=== PATIENT | male | born 1955 | race Caucasian/White ===

== ENCOUNTER → 2018-04-21 | Outpatient (REF) | END | disposition home or self-care (01) | DRG 951 | LOC: PAGE 16:16 | PROVIDERS: ATTEND Nurse Practitioner Family | DX: Z02.9 Encounter for administrative examinations, unspecified (principal) ==

== ENCOUNTER 2023-01-16 15:20 | Observation (INO) | payer MEDICARE ==
[~2023-01-16] VITALS: Ht 175.3 cm; Wt 83.9 kg
[~2023-01-16 15:20] MED LIST: LISINOPRIL20 M1 PO; METFORMIN HCL1000 MG PO
[2023-01-16] MEDS ORDERED: ASPIRIN 81 MG/TAB PO PRN (15:30)
[2023-01-16] MEDS ORDERED: ASPIRIN 81 MG/TAB ONE (15:42)
[2023-01-16] MEDS ORDERED: ASPIRIN 81 MG/TAB PO ONE (15:45)
[2023-01-16 16:06] LABS: BASO% 0.4 % (0-3); EOS% 1.8 % (0-8); HEMOGLOBIN 16.2 g/dl (14.0-18.0); IMMATURE GRANULOCYTES 0.2 % (0.0-5.0); LYMPH% 4.3 % (15-41); MEAN CELL VOLUME 91.9 fL CALC (80.0-100.0); MEAN CORPUSCULAR HGB 29.8 pG CALC (26.0-32.0); MEAN CORPUSCULAR HGB CONC 32.4 g/dL CAL (32.0-36.0); MONO% 8.8 % (2-13); NEUT# 8.35 thou/uL (1.82-7.42); NEUT% 84.5 % (42-76); RED BLOOD COUNT 5.44 mill/uL (4.70-6.10); RED CELL DISTRI WIDTH 12.4 % (11.5-15.5)
[2023-01-16 16:18] LABS: ALBUMIN 4.2 g/dL (3.2-5.0); ALKALINE PHOSPHATASE 62 u/l (38-126); ANION GAP 15 (6-22 (CALC)); BILIRUBIN, TOTAL 0.4 mg/dL (0.2-1.3); BUN 13 mg/dL (8-23); BUN/CREATININE RATIO 19 (12-20 (CALC)); CARBON DIOXIDE 24 mmol/l (22-30); CHLORIDE 105 mmol/l (95-108); CREATININE 0.7 mg/dL (0.7-1.3); GFR FOR AFR.AMER. > 60 ML/MIN (>=60 (CALC)); GFR OTHER RACES > 60 ML/MIN (>=60 (CALC)); LIPASE 58 u/l (23-300); POTASSIUM 3.7 mmol/l (3.5-5.1); SODIUM 141 mmol/l (137-146); TOTAL PROTEIN 7.1 g/dL (6.3-8.2)
[2023-01-16 16:30] LABS: SGOT/AST 33 u/l (19-48)
[2023-01-16] MEDS ORDERED: methylPREDNISolone SODIUM SUCC 125 MG/2 ML SDV IV ONE (19:10)
[2023-01-16] MEDS ORDERED: IPRATROPIUM-Albuterol 0.5MG-2.5MG/3 ML NEB ONE (19:10)
[2023-01-16] MEDS ORDERED: MAGNESIUM HYDROXIDE 30 ML UDC PO PRN (19:20)
[2023-01-16] MEDS ORDERED: ACETAMINOPHEN 325 MG/TAB PO PRN (19:20)
[2023-01-16] MEDS ORDERED: LISINOPRIL40 MG PO (19:22)
[2023-01-16] MEDS ORDERED: NORVASC10 M1 PO (19:22)
[2023-01-16] MEDS ORDERED: IPRATROPIUM-Albuterol 0.5MG-2.5MG/3 ML NEB PRN (19:25)
[2023-01-16 19:46] VITALS: BP 151/85
[2023-01-16 20:00] VITALS: BP 131/51
[2023-01-16 20:17] VITALS: BP 147/69
[2023-01-16 20:30] VITALS: BP 128/57
[2023-01-16 20:45] VITALS: BP 131/56
[2023-01-16] MEDS ORDERED: metFORMIN HYDROCHLORIDE 500 MG/TAB PO SCH (21:00)
[2023-01-16] MEDS ORDERED: ENOXAPARIN SODIUM 40 MG/0.4 ML SYR SC SCH (21:00)
[2023-01-16 22:25] VITALS: BP 127/59
[2023-01-17 03:54] VITALS: BP 142/72
[2023-01-17 05:30] LABS: BASO% 0.5 % (0-3); HEMOGLOBIN 15.7 g/dl (14.0-18.0); LYMPH% 4.4 % (15-41); MEAN CELL VOLUME 92.1 fL CALC (80.0-100.0); MEAN CORPUSCULAR HGB 29.5 pG CALC (26.0-32.0); MONO% 1.3 % (2-13); NEUT# 7.18 thou/uL (1.82-7.42); NEUT% 92.8 % (42-76); RED BLOOD COUNT 5.32 mill/uL (4.70-6.10); RED CELL DISTRI WIDTH 12.7 % (11.5-15.5)
[2023-01-17 05:40] LABS: ALKALINE PHOSPHATASE 64 u/l (38-126); BILIRUBIN, TOTAL 0.4 mg/dL (0.2-1.3); BUN 19 mg/dL (8-23); BUN/CREATININE RATIO 24 (12-20 (CALC)); CALCULATED LDLCHOLESTEROL 53 mg/dL (62-129 (CALC)); CARBON DIOXIDE 24 mmol/l (22-30); CHLORIDE 103 mmol/l (95-108); CHOLESTEROL HDL RATIO 2.7 (<4.4 (CALC)); CREATININE 0.8 mg/dL (0.7-1.3); GFR FOR AFR.AMER. > 60 ML/MIN (>=60 (CALC)); GFR OTHER RACES > 60 ML/MIN (>=60 (CALC)); HDL CHOLESTEROL 42 mg/dL (39.0-59.0); SGOT/AST 40 u/l (19-48); SODIUM 141 mmol/l (137-146); TOTAL CHOLESTEROL 112 mg/dl (0-199); TOTAL PROTEIN 6.6 g/dL (6.3-8.2); TOTAL TRIGLYCERIDES 81 mg/dl (0-149); VLDL CHOLESTROL 16 mg/dl (4-45 (CALC))
[2023-01-17 05:53] LABS: ANION GAP 19 (6-22 (CALC)); POTASSIUM 4.5 mmol/l (3.5-5.1)
[2023-01-17 06:10] VITALS: BP 139/72
[2023-01-17 08:12] LABS: MAGNESIUM 1.5 mg/dL (1.6-2.3)
[2023-01-17] MEDS ORDERED: amLODIPine BESYLATE 5 MG/TAB PO SCH (09:00)
[2023-01-17] MEDS ORDERED: methylPREDNISolone Sod Succ 40 MG/ML SDV IV SCH (09:00)
[2023-01-17] MEDS ORDERED: LISINOPRIL 20 MG/TAB PO SCH (09:00)
[2023-01-17 10:18] VITALS: BP 141/72
[2023-01-17] MEDS ORDERED: IPRATROPIU0.5 MG/3 M NEB (10:52)
[2023-01-17] MEDS ORDERED: MEDDOSEPAK PO (10:53)
[2023-01-17] MEDS ORDERED: MAGNESIUM SULFATE HEPTAHYDRATE 50 ML IV SCH (11:30)
== END 2023-01-17 12:24 | disposition home or self-care (01) ==
LOC: ED 15:20 → ED-I 18:50 → ED 19:38 → MS2 19:39
PROVIDERS: Nurse Practitioner; Nurse Practitioner Family; ADMIT Student in an Organized Health Care Education/Training Program; ATTEND Student in an Organized Health Care Education/Training Program
DX: R07.9 Chest pain, unspecified (principal); J44.1 Chronic obstructive pulmonary disease with (acute) exacerbation; J20.8 Acute bronchitis due to other specified organisms; J44.0 Chronic obstructive pulmonary disease with (acute) lower respiratory infection; I10 Essential (primary) hypertension; E11.9 Type 2 diabetes mellitus without complications; F17.200 Nicotine dependence, unspecified, uncomplicated; Z79.84 Long term (current) use of oral hypoglycemic drugs; Z20.822 Contact with and (suspected) exposure to COVID-19
CPT/HCPCS: G0378; J1650; J3475

== ENCOUNTER 2024-02-05 15:27 | Observation (INO) | payer MEDICARE ==
[2024-02-05] VITALS (20 sets, daily range): BP systolic 144–193; BP diastolic 70–141
[~2024-02-05] VITALS: Ht 175.3 cm; Wt 74.8 kg
[~2024-02-05 15:27] MED LIST changes: +IPRATROPIU0.5 MG/3 M NEB; +LISINOPRIL40 MG PO; +MEDDOSEPAK PO; +NORVASC10 M1 PO
--- NOTE | 2024-02-05 15:40 | NUR ---
PT TO ROOM WITH STEADY GAIT
[2024-02-05] MEDS ORDERED: cefTRIAXone SODIUM 2 GM in SODIUM CHLORIDE 0.9% 100 ML IV ONE (15:55)
[2024-02-05] MEDS ORDERED: IPRATROPIUM-Albuterol 0.5MG-2.5MG/3 ML NEB ONE ×2 (15:55)
[2024-02-05] MEDS ORDERED: methylPREDNISolone SODIUM SUCC 125 MG/2 ML SDV IV ONE (15:55)
[2024-02-05] MEDS ORDERED: AZITHROMYCIN 500 MG in SODIUM CHLORIDE 0.9% 500 ML IV ONE (15:55)
--- NOTE | 2024-02-05 16:00 | NUR ---
Reassessment of patient completed. No distress noted.
[2024-02-05 16:33] LABS: BASO% 0.5 % (0-3); EOS% 2.2 % (0-8); IMMATURE GRANULOCYTES 0.4 % (0.0-5.0); LYMPH% 10.9 % (15-41); MEAN CELL VOLUME 92.3 fL CALC (80.0-100.0); MEAN CORPUSCULAR HGB 29.5 pG CALC (26.0-32.0); MEAN CORPUSCULAR HGB CONC 31.9 g/dL CAL (32.0-36.0); MONO% 10.3 % (2-13); NEUT# 9.77 thou/uL (1.82-7.42); NEUT% 75.7 % (42-76); RED BLOOD COUNT 5.09 mill/uL (4.70-6.10); RED CELL DISTRI WIDTH 11.8 % (11.5-15.5)
[2024-02-05 16:45] LABS: ALKALINE PHOSPHATASE 81 u/l (38-126); ANION GAP 13 (6-22 (CALC)); BILIRUBIN, TOTAL 0.4 mg/dL (0.2-1.3); BUN 16 mg/dL (8-23); BUN/CREATININE RATIO 25 (12-20 (CALC)); CARBON DIOXIDE 29 mmol/l (22-30); CHLORIDE 103 mmol/l (95-108); CREATININE 0.6 mg/dL (0.7-1.3); ESTIMATED GFR 106 ML/MIN (>=90 (CALC)); POTASSIUM 4.8 mmol/l (3.5-5.1); SGOT/AST 24 u/l (19-48); SODIUM 141 mmol/l (137-146); TOTAL PROTEIN 6.9 g/dL (6.3-8.2)
[2024-02-05] MEDS ORDERED: ACETAMINOPHEN 325 MG/TAB PO PRN (18:35)
[2024-02-05] MEDS ORDERED: MAGNESIUM HYDROXIDE 30 ML UDC PO PRN (18:35)
[2024-02-05] MEDS ORDERED: IPRATROPIUM-Albuterol 0.5MG-2.5MG/3 ML NEB PRN (18:35)
--- NOTE | 2024-02-05 19:00 | NUR ---
RECIEVED REPORT FROM DL ANTONIO.
--- NOTE | 2024-02-05 19:09 | NUR ---
TRANSITION OF CARE BEDSIDE NURSE TO NURSE REPORT COMPLETED WITH JASKARAN ANTONIO
--- NOTE | 2024-02-05 19:23 | NUR ---
CALLED [facility], GAVE PT REPORT.
--- NOTE | 2024-02-05 19:44 | NUR ---
pt updated on poc, awiting for admission folders to be printed and completed. pt voices understanding with no furrther questions. pt call light within reach.
--- NOTE | 2024-02-05 20:55 | NUR ---
PT TRANSPORTED TO [facility] [place] AT THIS TIME. ZUMBA INSTRUCTOR AT BEDSIDE.
[2024-02-05] MEDS ORDERED: INSULIN LISPRO 100 UNITS/ML ML SC SCH (21:00)
[2024-02-05] MEDS ORDERED: methylPREDNISolone Sod Succ 40 MG/ML SDV IV SCH (21:00)
[2024-02-05] MEDS ORDERED: ENOXAPARIN SODIUM 40 MG/0.4 ML SYR SC SCH (21:00)
[2024-02-05] MEDS ORDERED: metFORMIN HYDROCHLORIDE 500 MG/TAB PO SCH (21:00)
--- NOTE | 2024-02-05 21:18 | NUR ---
PT GLUCOSE IS 374. NURSE NOTIFIED.
--- NOTE | 2024-02-05 22:56 | NUR ---
RECEIVED REPORT FROM ED NURSE LASHAWN, PATIENT TRANSPORTED VIA BED, ARRIVED MS UNIT AT 2058, PATIENT ALERT ORIENTED AMBULATORY, IV RAC G 20 PATENT FLUSHES WELL HOOKED ON TELEMTRY # 21, LUNG SOUND DIMINISHED RT LUNG FIELD AND WHEEZING NOTE ON LEFT LUNG FIELD, PATIENT DENIES PAIEN, PRODUCTIVE COUGH YELLOW, ADMISSION ASSESSMENT COMPLETD, PATIENT ORIENTYED TO ROOM AND CALL LIGHT SYSTEM, DINNER PROVIDED, CALL LIGHT WITHIN REACHED.
[2024-02-06] VITALS (9 sets, daily range): BP systolic 129–157; BP diastolic 71–83
--- NOTE | 2024-02-06 04:11 | NUR ---
PATIENT RESTING IN BED, FISH HATCHERY SUPERINTENDENT IN ROOM,NO DISCOMFORTS NOTED AT THIS TIME, CALL LIGHT WITHIN REACHED.
[2024-02-06 05:28] LABS: BASO% 0.2 % (0-3); HEMATOCRIT 44.9 % (39.0-50.0); HEMOGLOBIN 14.5 g/dl (14.0-18.0); IMMATURE GRANULOCYTES 0.6 % (0.0-5.0); LYMPH% 4.8 % (15-41); MEAN CELL VOLUME 92.8 fL CALC (80.0-100.0); MEAN CORPUSCULAR HGB CONC 32.3 g/dL CAL (32.0-36.0); MONO% 0.9 % (2-13); NEUT# 10.52 thou/uL (1.82-7.42); NEUT% 93.5 % (42-76); RED BLOOD COUNT 4.84 mill/uL (4.70-6.10); RED CELL DISTRI WIDTH 11.7 % (11.5-15.5)
[2024-02-06 05:42] LABS: ALBUMIN 3.5 g/dL (3.2-5.0); BILIRUBIN, TOTAL 0.3 mg/dL (0.2-1.3); CREATININE 0.7 mg/dL (0.7-1.3); MAGNESIUM 1.8 mg/dL (1.6-2.3); POTASSIUM 4.8 mmol/l (3.5-5.1); TOTAL PROTEIN 6.2 g/dL (6.3-8.2)
--- NOTE | 2024-02-06 07:04 | NUR ---
PT GLUCOSE IS 295 @1694.
--- NOTE | 2024-02-06 07:46 | NUR ---
PT IS AOX4, RESPIRATIONS ARE EVEN AND UNLABORED SITTING UP AT SIDE OF BED EATING BREAKFAST AT THIS TIME, PT DENIES PAIN AT THIS TIME.
[2024-02-06] MEDS ORDERED: LISINOPRIL 20 MG/TAB PO SCH (09:00)
[2024-02-06] MEDS ORDERED: amLODIPine BESYLATE 5 MG/TAB PO SCH (09:00)
--- NOTE | 2024-02-06 09:36 | NUR ---
Pt consented to pneumococcal vaccination, however currently receiving steroids. Vaccination not recommended at this time.
--- NOTE | 2024-02-06 11:09 | NUR ---
PT GLUCOSE IS 263 @1013.
--- NOTE | 2024-02-06 11:59 | NUR ---
PT DITTING UP IN CHAIR WITH JD AND JOSE BROUGHT IN FOR HIM. PROVIDED PT WITH SOME DIABETIC EDUCATION. PT VERBALIZED UNDERSTANDING.
--- NOTE | 2024-02-06 16:04 | NUR ---
PT GLUCOSE IS 276 @4297.
--- NOTE | 2024-02-06 18:43 | NUR ---
PT HAD A RUN OF 13 BEATS OF V-TACH PER ER MONITORING, WENT AND CHECKED ON PT AND HES LAYING IN THE BED WATCGING TV, ASKED PT IF HE GOT UP OUT OF BED OR DID ANYTHING AND PT REPLIED "NO, PAZ BEEN LAYING HERE"
--- NOTE | 2024-02-06 19:44 | NUR ---
RECEIVED REPORT FROM NURSE RAISSA, PATIENT HAD A RUN OF 13 BEATS OF VTACH, PATIENT IS ASYMPTOMATIC BUT IS COMPLAINING OF HEART BURM, NEW ORDER PANTOPRAZOLE 40MG BY MOUTH DAILY AND A STAT EKG.
[2024-02-06] MEDS ORDERED: AZITHROMYCIN 500 MG in SODIUM CHLORIDE 0.9% 250 ML IV SCH (20:00)
[2024-02-06] MEDS ORDERED: AZITHROMYCIN 500 MG in SODIUM CHLORIDE 0.9% 500 ML IV SCH (20:00)
--- NOTE | 2024-02-06 20:00 | NUR ---
RECEIVED REPORT NURSE RAISSA, PATIENT SITTING IN BED, ALERT ORIENTED, REQUESTIN TO SHOWER, IV ON RAC SALINE LOCK G 20, ON TELEMETRY. PATIENT BREATHIN UNLABORED ON ROOM AIR, DIMINISHED LUNG SOUNDS, PER REPORT ABOUT 1837 HAD A RUN OF 13 BEAT VTACH, PATIENT WAS SITTING IN BED, ASYMPTOMATIC, PATIENT NOW SAID THAT HE HAS HEART BURN, V/S OBTAINED WITHIN NORMAL RANGE, CALLED APPRENTICE ELECTRICIAN DR. LONG, WITH ORDERS MADE.
[2024-02-06] MEDS ORDERED: PANTOPRAZOLE SODIUM Sesquihydr 40 MG/TAB PO SCH (20:49)
--- NOTE | 2024-02-07 00:03 | NUR ---
PATIENT RESTING WITH EYES CLOSED, BREATHING EVN UNALBORED CALL LIGHT WITHIN REACHED.
--- NOTE | 2024-02-07 03:31 | NUR ---
CIVIL CLERK IN ROOM. PATIENT REFUSED BLOOD WORK AT THIS TIME, WILL PASS TO INCOMING NURSE.
[2024-02-07 03:46] VITALS: BP 138/77
[2024-02-07 07:24] VITALS: BP 137/76
[2024-02-07 07:47] VITALS: BP 137/76
--- NOTE | 2024-02-07 07:49 | NUR ---
PT IS AOX4, RESPIRATIONS ARE EVEN ANND UNLABORED, LUNG ARE DIM BUT CLEAR AT BILATERAL BASES, BOWEL SOUNDS ARE ACTIVE, PEDAL PULSES ARE PALPABLE TO TOUCH, PT DENIES PAIN AT THIS TIME. ASKED PT IF HE WOULD CONSENT TO HAVING LAB COME UP AND DRAW HIS MORNING LABS, PT REFUSED TO ALLOW ANY MORE LAB DRAWS TO BE DONE.
--- NOTE | 2024-02-07 08:38 | NUR ---
PT ALLOWED LAB TO DRAW MORNING LABS.
[2024-02-07 08:45] LABS: HEMATOCRIT 45.2 % (39.0-50.0); HEMOGLOBIN 14.5 g/dl (14.0-18.0); IMMATURE GRANULOCYTES 1.2 % (0.0-5.0); LYMPH% 4.4 % (15-41); MEAN CELL VOLUME 91.5 fL CALC (80.0-100.0); MEAN CORPUSCULAR HGB 29.4 pG CALC (26.0-32.0); MEAN CORPUSCULAR HGB CONC 32.1 g/dL CAL (32.0-36.0); MONO% 3.2 % (2-13); NEUT# 21.14 thou/uL (1.82-7.42); NEUT% 91.2 % (42-76); RED BLOOD COUNT 4.94 mill/uL (4.70-6.10); RED CELL DISTRI WIDTH 11.7 % (11.5-15.5)
[2024-02-07 08:57] LABS: ALBUMIN 3.7 g/dL (3.2-5.0); BILIRUBIN, TOTAL 0.3 mg/dL (0.2-1.3); CREATININE 0.6 mg/dL (0.7-1.3); MAGNESIUM 1.8 mg/dL (1.6-2.3); POTASSIUM 4.5 mmol/l (3.5-5.1); TOTAL PROTEIN 6.4 g/dL (6.3-8.2)
[2024-02-07] MEDS ORDERED: CEFUROXIME500 MG PO (10:23)
[2024-02-07] MEDS ORDERED: AZITHROMYCIN500 MG PO (10:24)
[2024-02-07] MEDS ORDERED: PREDNISONE10 MG PO (10:28)
[2024-02-07] MEDS ORDERED: PROTONIX40 M2 PO (10:29)
--- NOTE | 2024-02-07 11:11 | NUR ---
REVIEWED DISCHARGE INSTRUCTIONS WITH PT, DC'D IV, REMOVED TELE BOX 21 AND PLACED IT IN RETURN BIN AT NURSES STATION.
== END 2024-02-07 11:19 | disposition home or self-care (01) ==
LOC: ED 15:27 → ED-I 16:04 → ED 17:46 → MS2 17:47
PROVIDERS: Family Medicine; Nurse Practitioner Family; ADMIT Internal Medicine; ATTEND Internal Medicine
DX: J44.1 Chronic obstructive pulmonary disease with (acute) exacerbation (principal); J18.9 Pneumonia, unspecified organism; J44.0 Chronic obstructive pulmonary disease with (acute) lower respiratory infection; J96.01 Acute respiratory failure with hypoxia; I10 Essential (primary) hypertension; E11.9 Type 2 diabetes mellitus without complications; Z79.84 Long term (current) use of oral hypoglycemic drugs; F17.210 Nicotine dependence, cigarettes, uncomplicated; Z20.822 Contact with and (suspected) exposure to COVID-19
CPT/HCPCS: J0456; J0696; J1650; J1815